=== PATIENT | male | born 1945 | race Two or more races ===

== ENCOUNTER 2017-05-24 05:45 | Day surgery (SDC) | payer OTHER | END 2017-05-24 14:35 | disposition home or self-care (01) | LOC: EDBD → CIR.AMB 05:45 | DX: K40.90 Unilateral inguinal hernia, without obstruction or gangrene, not specified as recurrent (principal) ==

== ENCOUNTER → 2017-05-24 | Emergency (ER) | payer OTHER ==
[~2017-05-24] VITALS: Ht 177.8 cm; Wt 83.9 kg
[~2017-05-24] MED LIST: AZOR 5-40 MG T1 EACH PO; CADUET 10 MG/101 TAB; CRESTOR10 MG PO; DIOVAN160 M1; INDAPAMIDE2.5 MG PO; OMEPRAZOLE40 MG PO
== END | disposition home or self-care (01) ==
LOC: ER 18:31
DX: N99.89 Other postprocedural complications and disorders of genitourinary system (principal); N40.1 Benign prostatic hyperplasia with lower urinary tract symptoms; R33.8 Other retention of urine

== ENCOUNTER 2019-07-22 06:09 | Day surgery (SDC) | payer OTHER | END 2019-07-22 10:55 | disposition home or self-care (01) | LOC: AMB-ENDOS 06:09 → ADM 15:00 | DX: D12.8 Benign neoplasm of rectum (principal) ==